=== PATIENT | female | born 1980 | race Caucasian/White ===

== ENCOUNTER 2017-07-19 16:27 | Emergency (ER) | payer OTHER ==
[2017-07-19 16:36] VITALS: RESP 16; TEMP 98.2
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
[2017-07-19 17:44] VITALS: BP 130/83; PULSE 87; O2SAT 96
== END 2017-07-19 17:45 | disposition home or self-care (01) ==
DX: S39.012A Strain of muscle, fascia and tendon of lower back, initial encounter (principal); V49.40XA Driver injured in collision with unspecified motor vehicles in traffic accident, initial encounter; Y92.410 Unspecified street and highway as the place of occurrence of the external cause; Y99.8 Other external cause status; Y93.89 Activity, other specified

== ENCOUNTER 2018-07-13 07:46 | Day surgery (SDC) | payer OTHER ==
--- NOTE | 2018-07-10 10:21 | GHP ---
[f rep st] PREOP HISTORY AND PHYSICAL DATE OF ADMISSION: 07/13/2018 DATE OF SURGERY: 07/13/2018 CHIEF COMPLAINT: Hernia. HISTORY OF PRESENT ILLNESS: 38-year-old woman who presented to the clinic with a chief complaint of a hernia. She first noticed the bulge when she was in her 20s. It became worse during in 2016. She has now pain associated with the bulge. No known triggers. She has episodic nausea. The bulge is fully reducible. No overlying skin changes. She does have a history of an umbilical herni a repair when she was 2 or 3 years old. No change in her bowel habits. PAST MEDICAL HISTORY: Umbilical hernia. PAST SURGICAL HISTORY: Cholecystectomy, umbilical hernia repair, tonsillectomy. MEDICATIONS: Ibuprofen and Zantac. ALLERGIES: Penicillin causes hives. FAMILY MEDICAL HISTORY: Significant for stroke in grandmother at age 75. SOCIAL HISTORY: She denies tobacco or recreational drug use. She does drink alcohol occasionally. REVIEW OF SYSTEMS: No fevers or chills. PHYSICAL EXAMINATION: GENERAL: Well-developed, well-nourished woman in no acute distress. HEENT: Normocephalic, atraumatic. No hearing deficits. Pupils equal and round. No scleral icterus. Mucou s membranes moist. NECK: Trachea midline. RESPIRATORY: Clear to auscultation bilaterally. No inc reased work of breathing. CARDIOVASCULAR: Regular rate and rhythm. No peripheral edema. ABDOMEN: Soft, nondistended, nontender. Reducible epigastric hernia without overlying skin changes. Tender to palpation. SKIN: Warm and dry. Previous laparoscopic cholecystectomy well healed. PSYCH: Mood and affect normal. NEURO: Grossly intact. IMPRESSION AND PLAN: 38-year-old woman with symptomatic epigastric hernia. Recommend robotic versus laparoscopic versus open repair. Discussed risks of surgery, including, but not limited to heart at tack, stroke, blood clots, or . Discussed risks including infection, bleeding, damage to surrou nding structures, need for additional procedures, or recurrence. She understands the risks and would like to proceed. Patient was additionally seen by Dr. Maame Gamino who agrees with the above impress ion and plan. Anticipate this to be outpatient procedure. Receive antibiotics on-call to the operat ing room. She also has a history of nausea after anesthesia, we will put in an order for a scopolami ne patch. /[id number]/MODL
[2018-07-13] MEDS ORDERED: SCOPOLAMINE HYDROBROMIDE 1 MG/3 DAYS PATCH TD ONE (07:55)
[2018-07-13] MEDS ORDERED: MIDAZOLAM 2 MG/2 ML VIAL IVP ONE ×2 (07:55→08:07)
[2018-07-13] MEDS ORDERED: ceFAZolin 2 GM/DEXTROSE 100 ML IV ONE (08:05)
[2018-07-13] MEDS ORDERED: SCOPOLAMINE HYDROBROMIDE 1 MG/3 DAYS PATCH TD SCH (08:05)
[2018-07-13] MEDS ORDERED: LR 1,000 ML IV ONE (08:10)
[2018-07-13] MEDS ORDERED: BUPIVACAINE 0.5% 30 ML SDV ONE (08:13)
[2018-07-13] MEDS ORDERED: PATCH REMOVAL 1 EA PATCH TD SCH (08:26)
--- NOTE | 2018-07-13 08:29 | PDHPUP ---
History & Physical Update H&P update statement: This history and physical update is based on an assessment of the patient which was completed after admission or registration (within 24 hours), but prior to the surgery/procedure. H&P update: H&P reviewed & patient examined, no change in patient's condition since H&P completed
[2018-07-13] MEDS ORDERED: PROPOFOL 200 MG/20 ML VIAL ONE (08:50)
[2018-07-13] MEDS ORDERED: PROPOFOL/EMULSION 500 MG/50 ML BOTTLE IV ONE ×3 (08:50→09:43)
[2018-07-13] MEDS ORDERED: fentaNYL 100 MCG/2 ML INJ ONE ×2 (08:50→09:28)
--- NOTE | 2018-07-13 08:50 | PDANEPAE ---
ANE Past Medical History - Cardiovascular History Hx Hypertension: No Hx Arrhythmias: No Hx Chest Pain: No Hx Coronary Artery / Peripheral Vascular Disease: No Hx CHF / Valvular Disease: No Hx Palpitations: No - Pulmonary History Hx COPD: No Hx Asthma/Reactive Airway Disease: No Hx Recent Upper Respiratory Infection: No Hx Oxygen in Use at Home: No Hx Sleep Apnea: No Sleep Apnea Screening Result - Last Documented: Negative - Neurologic History Hx Cerebrovascular Accident: No Hx Seizures: No Hx Dementia: No - Endocrine History Hx Diabetes: No - Renal History Hx Renal Disorders: No - Liver History Hx Hepatic Disorders: No - Neurological & Psychiatric Hx Hx Neurological and Psychiatric Disorders: No - Cancer History Hx Cancer: No - Congenital Disorder History Hx Congenital Disorders: No - GI History Hx Gastrointestinal Disorders: Yes Gastrointestinal History Comment: reflux- uses zantac. hx of gastritis in the last year - Other Health History Other Health History: eyes are dry from lasik- will bring eye drops. rash to scalp/ face d/t allergic reaction to product she is no longer using - Chronic Pain History Chronic Pain: No - Surgical History Prior Surgeries: ria. lasik eye surgery. tonsillectomy around 1 or 2 yo. umbilical hernia at 2 yo ANE Review of Systems Review of Systems: - Exercise capacity METS (RN): 4 METS ANE Patient History - Allergies Allergies/Adverse Reactions: Penicillins Allergy (Verified 07/09/18 14:41) hives as child - Home Medications Home Medications: Advil PRN 07/09/18 [Last Taken 07/09/18] Zantac PRN 07/09/18 [Last Taken Unknown] - NPO status NPO Since - Liquids (Date): 07/13/18 NPO Since - Liquids (Time): 05:30 NPO Since - Solids (Date): 07/12/18 NPO Since - Solids (Time): 21:00 - Smoking Hx Smoking Status: Never smoked - Family Anes Hx Family Hx Anesthesia Complications: none ANE Labs/Vital Signs - Vital Signs Vital Signs: reviewed preoperatively; see RN documention for details Blood Pressure: 131/78 Heart Rate: 77 Respiratory Rate: 12 O2 Sat (%): 98 Height: 172.72 cm Weight: 79.379 kg ANE Physical Exam - Airway Neck exam: FROM Mallampati Score: Class 2 Mouth exam: normal dental/mouth exam - ASA Status ASA Status: I ANE Anesthesia Plan Anesthesia Plan: general endotracheal anesthesia Total IV Anesthesia: Yes
[2018-07-13] MEDS ORDERED: ROCURONIUM 50 MG/5 ML VIAL ONE (08:53)
[2018-07-13] MEDS ORDERED: PETROLAT,WHT/MIN OIL/SOD CHL 3.5 GM OPHT.OINT ONE (08:54)
[2018-07-13] MEDS ORDERED: REMIFENTANIL HCL 1 MG VIAL ONE (09:24)
[2018-07-13] MEDS ORDERED: DEXAMETHASONE 4 MG/ML VIAL ONE (09:29)
[2018-07-13] MEDS ORDERED: KETOROLAC 30 MG/1 ML SDV ONE (10:08)
[2018-07-13] MEDS ORDERED: ONDANSETRON 4 MG/2 ML VIAL ONE (10:08)
[2018-07-13] MEDS ORDERED: NEOSTIGMINE METHYLSULFATE 5 MG/5 ML SYR ONE (10:12)
[2018-07-13] MEDS ORDERED: GLYCOPYRROLATE 0.2 MG/1 ML VIAL ONE (10:13)
--- NOTE | 2018-07-13 10:18 | POSTOPPROG ---
Post Op Note Date of Operation: 07/13/18 Surgeon: Maame Gamino Pesticide Applicator: reagan Anesthesiologist: terri Anesthesia: GET(General Endotracheal) Pre-op Diagnosis: ventral hernia Post-op Diagnosis: ventral and umbilical hernia Indication: 38 yo with ventral and umbilical hernia Procedure: ventral and umbilical hernia repair Findings: [address] Inf/Abcess present in the surg proc area at time of surgery?: No EBL: Minimal Specimen(s): none
--- NOTE | 2018-07-13 11:03 | GOP ---
[f rep st] OPERATIVE REPORT DATE OF OPERATION: 07/13/2018 SURGEON: Maame Gamino MD LEAD ENGINEER: Lanette Arreguin, WICHO ANESTHESIA: General. ANESTHESIOLOGIST: Kelly Cardona MD PREOPERATIVE DIAGNOSIS: Ventral hernia. POSTOPERATIVE DIAGNOSIS: Ventral hernia and umbilical hernia. PROCEDURE PERFORMED: Di Huan ventral hernia and umbilical hernia repair. FINDINGS: 1 cm defect with a large amount of fat in the ventral area and less than 1 cm defect by th e umbilicus. SPECIMENS: None. ESTIMATED BLOOD LOSS: 10 cc. INDICATIONS: The patient is a 38-year-old woman with a history of umbilical hernia repair, who devel oped a ventral hernia during . It is becoming more bothersome. DESCRIPTION OF PROCEDURE: Patient was brought into the operating room, placed supine on the table, a nd general anesthesia was administered. Her abdomen was prepped and draped in the usual sterile fash ion. Infiltrated all sites with 0.5% Marcaine prior to making incisions. Initially I marked out the hernia and potential mesh placement and then marked 12 cm lateral for my trocars. I elevated the la teral abdomen, elevated it and inserted the Veress needle. I did have a bit of pressure and so I was nervous about inserting the Veress needle and the trocar fully because of potential of hitting the l eft colon. I made the decision to place a suprapubic 5 mm port and I inserted the Veress needle, it passed the hanging drop test. I placed a 5 mm trocar and placed the [employer] camera at this site. Th en under direct vision, I could place three 5 mm trocars along left lateral abdomen. She was tilted to the right and the robot was brought in. It was docked. The instruments were introduced under dir ect vision. I used the scissors to reduce the fat from the umbilical hernia and then I could identif y also the ventral hernia. I removed a large quantity of intraabdominal fat from the epigastric shaheen ia. Surprisingly, the defect was very small, approximately 1 cm. Since both of these defects were v jyoti small I elected not to use mesh. I then used a 0 180 V-Loc suture to suture both of the defect c losed. I had reduce the pressure while sewing. I inspected the abdomen, no injury is noted. The re pair appeared very strong and there was no dimpling on the skin. Instruments removed under direct vi brittani. The robot was undocked and the ports removed. Her abdominal space was allowed to desufflate. All skin was closed with 4-0 Monocryl, Dermabond applied. She was awakened in the operating room, e xtubated, transferred to PACU in stable condition. /[id number]/MODL
[2018-07-13] MEDS ORDERED: ALBUTEROL 3 ML DEYVIAL IH PRN (11:10)
[2018-07-13] MEDS ORDERED: PROMETHAZINE HCL 25 MG/ML INJ IVP PRN (11:10)
[2018-07-13] MEDS ORDERED: ACETAMINOPHEN 500 MG TAB PO PRN (11:10)
[2018-07-13] MEDS ORDERED: LR 500 ML IV PRN (11:10)
[2018-07-13] MEDS ORDERED: HYDROmorphONE/DILAUDID 2 MG/ML INJ IVP PRN (11:10)
[2018-07-13] MEDS ORDERED: METOCLOPRAMIDE 10 MG/2 ML VIAL IVP PRN (11:10)
[2018-07-13] MEDS ORDERED: NALOXONE HCL 0.4 MG/ML INJ IVP PRN (11:10)
[2018-07-13] MEDS ORDERED: oxyCODONE IR 5 MG TAB PO PRN (11:10)
[2018-07-13] MEDS ORDERED: ONDANSETRON 4 MG/2 ML VIAL IVP PRN (11:10)
[2018-07-13] MEDS ORDERED: DIAZEPAM 5 MG/ML 1 ML SYR IVP PRN (11:10)
[2018-07-13] MEDS ORDERED: MEPERIDINE 25 MG/0.5 ML AMP IVP PRN (11:10)
[2018-07-13] MEDS ORDERED: fentaNYL 100 MCG/2 ML INJ IVP PRN (11:10)
[2018-07-13 12:25] VITALS: BP 116/71
--- NOTE | 2018-07-13 13:31 | POSTANESTH ---
Post Anesthetic Evaluation Cardiovascular Status: Normal, Stable Respiratory Status: Normal, Stable Level of Consciousness/Mental Status: Can Participate in Eval Pain Control: Adequate, Prn Tx Ordered Nausea/Vomiting Control: Adequate, Prn Tx Ordered Complications Possibly Related to Anesthesia: None Noted
== END 2018-07-13 14:20 | disposition home or self-care (01) ==
LOC: FSGY 07:46
PROVIDERS: ATTEND Surgery
DX: K43.2 Incisional hernia without obstruction or gangrene (principal); K42.9 Umbilical hernia without obstruction or gangrene; Z88.0 Allergy status to penicillin
CPT/HCPCS: J0690; J1100; J1885; J2250; J2405; J2704; J2710; J3010